=== PATIENT | male | born 1985 | race Caucasian/White ===

== ENCOUNTER 2022-04-16 04:44 | Emergency (ER) | payer OTHER, BC, SELFPAY ==
--- NOTE | ~2022-04-16 | XR_ITS ---
XR shoulder RT min 2V 04/16/2022 05:17 INDICATION: Right shoulder pain PROCEDURE: 4 views right shoulder COMPARISON: No prior studies for comparison. FINDINGS: Fracture, dislocation or subluxation is not identified. The soft tissues appear within norm al limits. No foreign bodies are identified. IMPRESSION: 1: NO ACUTE BONE OR JOINT ABNORMALITY IDENTIFIED. Reviewed, dictated and finalized at location A.
[2022-04-16 04:46] VITALS: BP 174/112; PULSE 106; RESP 16; TEMP 36.8; O2SAT 100
[2022-04-16] MEDS: KETOROLAC 30 MG/ML VIAL (*BKC) IM (05:07)
--- NOTE | 2022-04-16 05:18 | ED.UPPEXIN ---
HPI - Extremity Injury (Upper) General Chief Complaint: Extremity Injury, Upper Stated Complaint: Right shoulder injury Time Seen by Provider: 04/16/22 04:52 Source: patient History of Present Illness HPI narrative: Patient presents with right shoulder pain. Patient was in pain for the past couple days and feels like is related to work as he uses his arms a lot. His pain is achy is primarily on the back of his shoulder no radiation worse with attempting to move his shoulder. Denies any focal numbness or weakness denies any trauma to the area denies any fevers or chills. Related Data Home Medications Medication Instructions Recorded Confirmed No Home Medications 04/16/22 04/16/22 Allergies Allergy/AdvReac Type Severity Reaction Status Date / Time lactose AdvReac Vomiting Verified 04/16/22 04:53 Review of Systems Review of Systems: CONSTITUTIONAL: Denies fever, chills, or sweats. EYES: Denies visual changes, redness, or discharge. CARDIOVASCULAR: Denies chest pain, palpitations, or edema. GASTROINTESTINAL: Denies abdominal pain, nausea, vomiting, or diarrhea. MUSCULOSKELETAL: Denies back pain, joint pain, or myalgia. NEUROLOGIC: Denies headache, numbness, dizziness, or weakness. Exam Narrative: GENERAL: Well-appearing, well-nourished, and in no acute distress. HEAD: Normocephalic, atraumatic. EYES: PERRLA and EOMI. ENT: Nares clear, no rhinorrhea or epistaxis. Mucous membranes moist. NECK: Supple. No masses. No JVD EXTREMITIES: Normal range of motion. No edema. Tenderness to the right shoulder most noted on the posterior aspect of the shoulder as well as at the AC joint. Pain present exacerbated through all range of motion however most noted with internal rotation and shoulder flexion. There is no focal bony tenderness and is obvious deformity there is no open or draining wounds distal extremity has 5 out of 5 strength in the right hand with sensation intact to light touch cap refill less than 2 seconds. SKIN: Warm, dry, no rash. NEURO: No focal deficits. Alert and oriented x3. PSYCH: Normal mood and affect. Course Reevaluation(s) Reevaluation #1: Patient resting comfortably results and plan reviewed with patient. Patient is comfortable outpatient plan. Date: 04/16/22 Time: 05:26 Vital Signs Vital signs: Vital Signs Temperature 36.8 C 04/16/22 04:46 Pulse Rate 106 H 04/16/22 04:46 Respiratory Rate 16 04/16/22 04:46 Blood Pressure 174/112 H 04/16/22 04:46 Pulse Oximetry 100 04/16/22 04:46 Oxygen Delivery Room Air 04/16/22 04:46 Temperature 36.8 C 04/16/22 04:46 Pulse Rate 93 04/16/22 05:48 Respiratory Rate 16 04/16/22 05:48 Blood Pressure 160/104 H 04/16/22 05:48 Pulse Oximetry 100 04/16/22 05:48 Oxygen Delivery Room Air 04/16/22 04:46 MDM - Extremity Injury (Upper) MDM Narrative Medical decision making narrative: H&P as above, vss, pt looks clinically well, exam posterior shoulder pain, imaging without acute process, additional labs/img considered, symptomatic relief available as needed, on reevaluation pt continues to looks clinically well. Suspect soft tissue injury such as tendinitis dns dislocation, major neurovascular compromise, fracture. plan to tx/monitor as op w/ pcm f/u findings/plan discussed with pt, pt agree/comfortable with plan, return precautions given Imaging Data My impression: No malalignment or fracture noted on shoulder plain films Discharge Plan Discharge Clinical Impression: Rotator cuff (capsule) sprain Qualifiers: Encounter type: initial encounter Laterality: right Qualified Code(s): S43.421A - Sprain of right rotator cuff capsule, initial encounter Patient Disposition: Home, Self-Care Condition: Improved Instructions: Antibiotic Form, Rotator Cuff Tendinitis (ED), Rotator Cuff Injury Exercises (DC) Additional Instructions: Please return if your symptoms worsen or fail to improve. If you develop a fever, can not eat
[2022-04-16 05:48] VITALS: BP 160/104; PULSE 93; RESP 16; O2SAT 100
== END 2022-04-16 05:49 | disposition home or self-care (01) ==
PROVIDERS: Emergency Provider Emergency Medicine
DX: S43.421A Sprain of right rotator cuff capsule, initial encounter (principal); X58.XXXA Exposure to other specified factors, initial encounter
CPT/HCPCS: 73030; 96372; 99283; A4565; J1885

== ENCOUNTER 2025-05-14 11:53 | Emergency (ER) | payer BC, SELFPAY ==
[2025-05-14 12:07] VITALS: BP 139/83; PULSE 79; RESP 18; TEMP 37.1; O2SAT 100
--- NOTE | 2025-05-14 12:42 | ED_ITS ---
HPI - Skin/Abscess/Foreign Bdy General Chief complaint: Skin/Abscess/Foreign Body Stated complaint: RT Leg Cut Infection Source: patient Mode of arrival: ambulatory Limitations: no limitations History of Present Illness HPI narrative: Patient is a 40-year-old male who presents to clinic with complaints of wound to his right desai. He states that he hit his leg off a boat ladder x 6 days ago and has noticed increased redness to the area that is extending down to his ankle now. He endorses that he was in a page when this happened. He is not up-to-date on his tetanus. He states that the area is itchy, but denies any pain. Denies any fevers, body aches, nausea, vomiting, or diarrhea. Related Data Home Medications ?Medication ?Instructions ?Recorded ?Confirmed ?Last Taken ?Type amlodipine 10 mg tablet mg 05/14/25 Unknown History atorvastatin 20 mg tablet mg 05/14/25 Unknown History losartan 100 mg tablet mg 05/14/25 Unknown History tirzepatide 5 mg/0.5 mL mg subcut 05/14/25 Unknown History subcutaneous pen injector (Mounjaro) Allergies Allergy/AdvReac Type Severity Reaction Status Date / Time lactose AdvReac Intermediate Vomiting Verified 05/14/25 12:19 Review of Systems Review of Systems: CONSTITUTIONAL: Denies body aches, fever, chills, or sweats. EYES: Denies visual changes, redness, or discharge. ENT: Denies rhinorrhea, congestion CARDIOVASCULAR: Denies chest pain, palpitations, or edema. RESPIRATORY: Denies cough or dyspnea. GASTROINTESTINAL: Denies abdominal pain, nausea, vomiting, or diarrhea. SKIN: ?Reports a wound to his right desai that has increased in size and redness. MUSCULOSKELETAL: Denies back pain, joint pain, or myalgia. NEUROLOGIC: Denies headache, numbness, tingling, or weakness. All systems reviewed & are unremarkable except as noted in HPI and below PMFSH Comments At time of signature, I have reviewed and agree with nursing past medical, surgical, social and family history unless otherwise noted. Please see nursing chart for further information. There is no relevant family history pertinent to the presenting complaint. Exam Narrative: GENERAL: Well-appearing HEAD: Normocephalic, atraumatic. EYES: ?conjunctivae clear, and EOMI. ENT: Mucous membranes moist. Oropharynx without edema, erythema or lesions. NECK: Supple. No lymphadenopathy CHEST: Clear to auscultation. HEART: Regular rate and rhythm. SKIN: Warm, dry. ?1cm x 1cm abrasion noted to right desai. Area surrounding abrasion is erythemic, edematous, and warm to touch. Erythema extends down to right ankle. Tenderness noted to palpation. NEURO: ?Alert and oriented x3.? Course Course Level of Care: Express Care Visit Vital Signs Vital signs: Vital Signs Temperature 98.8 F 05/14/25 12:07 Pulse Rate 79 05/14/25 12:07 Respiratory Rate 18 05/14/25 12:07 Blood Pressure 139/83 05/14/25 12:07 Pulse Oximetry 100 05/14/25 12:07 Oxygen Delivery Room Air 05/14/25 12:07 Temperature 98.8 F 05/14/25 12:07 Pulse Rate 79 05/14/25 12:07 Respiratory Rate 18 05/14/25 12:07 Blood Pressure 139/83 05/14/25 12:07 Pulse Oximetry 100 05/14/25 12:07 Oxygen Delivery Room Air 05/14/25 12:07 Reviewed MDM - Skin/Abscess/Foreign Bdy MDM Narrative Medical decision making narrative: Discussed physical exam findings. Tetanus updated. Keflex and Levofloxacin prescriptions given. Advised supportive measures and signs/symptoms to go to the ER. Pt is appropriate for outpatient treatment and follow up. Differential Diagnosis Differential diagnosis: Likely abscess of skin or subcutaneous tissue, cellulitis, impetigo and other (skin avulsion, MRSA. ) Critical Care Time Critical Care Time Critical Care Time: No Discharge Plan Discharge Clinical Impression: Wound infection Patient Disposition: Home Condition: Stable Instructions: Wound Infection (DC) Additional Instructions: Take antibiotic as prescribed. Keep the area clean and dry - cleanse with warm water and mild soap and allow to fully dry. Ok to apply vaseline to the site Keep it open to air (no bandages) Watch for worsening symptoms including pain, redness, swelling, streaking, pus/drainage, fever. Go to the ER with any of these symptoms or concerns. Follow up with primary care provider in 1 week as needed. Patient Language: Citizen Of [place] Prescriptions: New levofloxacin 750 mg tablet 750 mg PO DAILY 10 Days Qty: 10 0RF cephalexin 500 mg capsule 500 mg PO QID 10 Days Qty: 40 0RF No Action atorvastatin 20 mg tablet amlodipine 10 mg tablet losartan 100 mg tablet Mounjaro 5 mg/0.5 mL pen injector SUBCUT Follow-up/Referrals: Katherin,Ericka Andrade, G[employer]ER [Primary Care Provider] - Time of Disposition: 12:53
[2025-05-14] MEDS: TETANUS,DIPHTHERIA,AC PERTUSSIS ADULT (0.5 ML) BOOSTRIX IM (12:52)
== END 2025-05-14 12:57 | disposition home or self-care (01) ==
PROVIDERS: PCP Nurse Practitioner Family
DX: S80.811A Abrasion, right lower leg, initial encounter (principal); L08.9 Local infection of the skin and subcutaneous tissue, unspecified; W22.8XXA Striking against or struck by other objects, initial encounter; Z23 Encounter for immunization
CPT/HCPCS: 90471; 90715; 99213; G0463